=== PATIENT | female | born 1985 | race Caucasian/White ===

== ENCOUNTER → 2017-12-08 | Outpatient (CLI) | payer OTHER ==
[~2017-12-08] MED LIST: HYDROmorphone HCL PF 2 MG/ML VIAL ONE; IBUP-238 PO; NORE1TAB33 PO; PERC5TAB12 PO; PREN0.01 PO
[2017-12-08 13:21] LABS: AUTOMATED NEUTROPHIL # 4.5 TH/MM3 (1.8-7.7); BASOPHIL % 0.4 % (0.0-2.0); EOSINOPHIL # 0.1 TH/MM3 (0-0.4); EOSINOPHIL % 1.3 % (0.0-4.0); HEMATOCRIT 40.4 % (35.0-46.0); HEMOGLOBIN 14.2 GM/DL (11.6-15.3); LYMPHOCYTE # 2.4 TH/MM3 (1.0-4.8); MEAN CELL VOLUME 91.9 FL (80.0-100.0); MEAN CORPUSCULAR HEMOGLOBIN 32.4 PG (27.0-34.0); MEAN CORPUSCULAR HGB CONC 35.2 % (32.0-36.0); MEAN PLATELET VOLUME 8.1 FL (7.0-11.0); MONO % 5.8 % (0.0-8.0); MONOCYTE # 0.4 TH/MM3 (0-0.9); NEUT % 60.5 % (16.0-70.0); PLATELET COUNT 262 TH/MM3 (150-450); RED CELL DISTRIBUTION WIDTH 12.7 % (11.6-17.2); WHITE BLOOD COUNT 7.4 TH/MM3 (4.0-11.0)
[2017-12-08 13:29] LABS: BILIRUBIN, URINE NEG (NEG); BLOOD, URINE NEG (NEG); GLUCOSE,URINE NEG (NEG); KETONE, URINE NEG (NEG); NITRITE,URINE NEG (NEG); PH, URINE 5.5 (5.0-8.5); SQUAMOUS EPITHELIAL CELL URINE 2 /hpf (0-5); URINE COLOR YELLOW (YELLW/STRAW); URINE LEUKOCYTE ESTERASE NEG (NEG)
--- NOTE | 2017-12-09 23:32 | EKG ---
Date Performed: 12/08/2017 Time Performed: 12:46:29 PTAGE: 32 years EKG: Sinus rhythm WITH SINUS ARRHYTHMIA NORMAL ECG NO PREVIOUS TRACING DOCTOR: Ben Skinner Interpretating Date/Time 12/09/2017 23:31:30
== END ==
LOC: CPRE 12:30
PROVIDERS: ATTEND Obstetrics & Gynecology
DX: Z01.810 Encounter for preprocedural cardiovascular examination (principal); Z01.812 Encounter for preprocedural laboratory examination; Z01.818 Encounter for other preprocedural examination
CPT/HCPCS: 36415; 81001; 84702; 85025; 93005

== ENCOUNTER → 2017-12-11 | Day surgery (SDC) | payer OTHER ==
[~2017-12-11] VITALS: Ht 180.3 cm; Wt 72.6 kg
[~2017-12-11] MED LIST changes: +ACETAMINOPHEN 1000 MG/100 ML 100 ML IV SCH; +BUPIVACAINE/EPINEPHRINE 0.5% PF 30 ML VIAL ONE; +CHLORHEXIDINE GLUCONATE 2 % 1 PACK (2 CLOTHS) TOPICAL PRN; +DEXAMETHASONE SOD PHOS 4 MG/ML VIAL IV ONE; +DO NOT ADM ANY ANTICOAGULANT DRUGS PRN; +GLYCOPYRROLATE 1 MG/5 ML SYRINGE IV PUSH ONE; +HYDROmorphone HCL PF 2 MG/ML VIAL IV ONE; -HYDROmorphone HCL PF 2 MG/ML VIAL ONE; +KETOROLAC TROMETHAMINE 30 MG/ML (IVP) VIAL IV PUSH ONE; +LACTATED RINGER'S 1000 ML INJ 1,000 ML IV ONE; +LACTATED RINGER'S 1000 ML IV PRN; +LIDOCAINE HCL 1% PF 5 ML SYRINGE OTHER ONE; +METOCLOPRAMIDE HCL 10 MG/2 ML VIAL IV PRN; +METOPROLOL TARTRATE 25 MG TAB PO PRN; +NEOSTIGMINE 5 MG/5 ML SYRINGE IV PUSH ONE; +ONDANSETRON HCL 4 MG/2 ML VIAL IV ONE; +POVIDONE IODINE 5% (ANTISEPSIS KIT) 4 APPLICATIONS EACH NARE PRN; +PROPOFOL 200 MG/20 ML AMP IV ONE; +ROCURONIUM INJ 50 MG/5 ML SYRINGE IV PUSH ONE; +SODIUM CHLORID 0.9% 500 ML IV PRN; +ceFAZolin 1,000 MG/NS 100 ML IV SCH; +oxyCODONE/ACETAMINOPHEN 5 MG/325 MG TAB PO PRN
--- NOTE | 2017-12-11 08:23 | MP ---
cc: Toni Cabello MD DATE OF OPERATION: 12/11/2017 PREOPERATIVE DIAGNOSIS: Multiparity, undesired fertility. POSTOPERATIVE DIAGNOSIS: Multiparity, undesired fertility. PROCEDURE: Laparoscopic partial bilateral salpingectomy. ANESTHESIA: General ET. SURGEON: Toni Cabello MD NURSING EXECUTIVE: Alisson Lynn ESTIMATED BLOOD LOSS: Less than 5 mL. FLUIDS: 1 liter of crystalloid. OBJECTIVE FINDINGS: Following induction of adequate general endotracheal anesthesia, the patient was prepped and draped supine on the operating room table in the usual sterile fashion with the bladder being drained by Chang catheterization. The umbilicus injected with 3 mL of Marcaine 0.5% with epinephrine. A -1/2 cm incision made and a 5 port placed. A similar injection in the right and left lower quadrants at each end of her old Pfannenstiel incision and an 8 port was placed on the left and a 5 on the right. Examination internally with the scope revealed normal uterus, tubes, ovaries, cul-de-sacs, liver edge and appendix. Working first on the left, the Harmonic scalpel was used to take the tube from the fimbria to the mid isthmic region and extracted through the larger port and the same on the right. Inspection revealed no bleeding. Low pressure test still revealed no bleeding. The scope was removed. The gas was allowed to escape and the umbilical ports were all closed with interrupted sutures of 3-0 Monocryl interrupted. Steri-Strips applied. Hcang was discontinued. All counts were correct and the patient was awakened and taken to the recovery room in good condition. MD LISA Law/DL , 08:06 AM , 08:21 AM LAURENCE
[2017-12-11 09:38] VITALS: BP 120/69; PULSE 55; RESP 16; TEMP 97.5; O2SAT 99
== END | disposition home or self-care (01) ==
LOC: HSDC 05:31
PROVIDERS: ATTEND Obstetrics & Gynecology
DX: Z30.2 Encounter for sterilization (principal)
CPT/HCPCS: 00851; 58670; 88302; J0131; J0690; J1100; J1170; J1885; J2405; J2710; J2765; J3010; J7120